=== PATIENT | male | born 1975 | race Two or more races ===

== ENCOUNTER 2025-01-07 16:52 | Emergency (ER) | payer OTHER ==
[2025-01-07 17:00] VITALS: BP 111/78; PULSE 73; RESP 20; TEMP 97.9; BMI 27.7
== END 2025-01-07 18:22 | disposition home or self-care (01) ==
LOC: JER 16:52
DX: F14.90 Cocaine use, unspecified, uncomplicated (principal)
CPT/HCPCS: 99283-25

== ENCOUNTER 2025-01-07 18:56 | Inpatient (IN) | payer OTHER ==
[2025-01-07 19:23] VITALS: BMI 27.8
[2025-01-07] MEDS ORDERED: LOPERAMIDE HCL 2 MG CAPSULE PO PRN (21:00)
[2025-01-07] MEDS ORDERED: IBUPROFEN 400 MG TABLET (FP) PO PRN (21:00)
[2025-01-07] MEDS ORDERED: NICOTINE POLACRILEX 2 MG LOZENGE BC PRN (21:00)
[2025-01-07] MEDS ORDERED: guaiFENesin 600 MG TABLET.ER (FP) PO PRN (21:00)
[2025-01-07] MEDS ORDERED: MAGNESIUM HYDROX 2400MG/30ML ORAL SUSPENSION 30 ML CUP PO PRN (21:00)
[2025-01-07] MEDS ORDERED: BENZONATATE 200 MG CAPSULE PO PRN (21:00)
[2025-01-07] MEDS ORDERED: NALOXONE (NARCAN) HCL 4 MG/0.1 ML SPRAY NS PRN (21:00)
[2025-01-07] MEDS ORDERED: NICOTINE POLACRILEX 2 MG GUM BUC PRN (21:00)
[2025-01-07] MEDS: CARVEDILOL 6.25 MG TABLET (FP) PO SCH (23:09)
[2025-01-07] MEDS: THIAMINE 100 MG TABLET PO SCH (23:09)
[2025-01-07] MEDS: MELATONIN 5 MG TABLETS PO SCH (23:09)
[2025-01-08] MEDS: FUROSEMIDE 20 MG TABLET (FP) PO SCH (10:53)
[2025-01-08] MEDS: amLODIPine BESYLATE 10 MG TABLET (FP) PO SCH (10:53)
[2025-01-08] MEDS: LISINOPRIL 10 MG TABLET PO SCH (10:53)
[2025-01-08] MEDS: PRENATAL VITAMINS W/ FOLIC ACID TABLET (FP) PO SCH (10:53)
[2025-01-08] MEDS: TUBERCULIN PPD 5 TU/0.1ML SYRINGE (IN PATIENT USE ONLY) ID ONE (10:53)
[2025-01-08] MEDS: ASPIRIN COATED 81 MG TABLET.EC PO SCH (10:53)
[2025-01-08 11:22] LABS: HEMATOCRIT 46.4 % (40.1-51.0); HEMOGLOBIN 14.7 g/dL (13.7-17.5); MCHC 31.7 g/dl (32.3-36.5); MEAN CELL VOLUME 86.6 fl (79.0-92.2); MEAN PLT VOLUME 11.3 fl (9.4-12.4); PLATELET COUNT 161 x10^3/uL (163-337)
[2025-01-08 11:29] LABS: POTASSIUM 4.4 mmol/L (3.5-5.1)
[2025-01-08 11:50] LABS: ALBUMIN 2.8 g/dl (3.4-5.0); BLOOD UREA NITROGEN 15.8 mg/dL (7-18); CALCIUM 9.1 mg/dL (8.5-10.1)
[2025-01-08 11:54] LABS: CREATININE 1.4 mg/dL (0.55-1.3)
[2025-01-08 11:55] LABS: BILIRUBIN,TOTAL 0.2 mg/dL (0.2-1); TOT PROT 5.7 g/dl (6.4-8.2)
[2025-01-08] MEDS: FENOFIBRIC ACID 135 MG CAP PO SCH (14:57)
[2025-01-09] MEDS: IBUPROFEN 600 MG TABLET (FP) PO PRN (17:07)
[2025-01-13] MEDS: BACLOFEN 10 MG TABLET (FP) PO SCH (14:13)
[2025-01-13] MEDS: ACETAMINOPHEN 325 MG TABLET (FP) PO PRN (20:23)
[2025-01-13] MEDS: MAG HYDROX/AL HYDROX/SIMETH 30 ML UNIT-DOSE CUP PO PRN (22:05)
[2025-01-14] MEDS: OXYMETAZOLINE 0.05% NASAL SOLUTION 15 ML BOTTLE NS PRN (21:34)
[2025-01-17] MEDS ORDERED: BISACODYL 5 MG TABLET.DR (FP) PO PRN (09:41)
[2025-01-18] MEDS: HYDROCORTISONE 1% TOPICAL OINT 30 GM TUBE TP PRN (21:17)
[2025-01-19] MEDS: LIDOCAINE 5% TOPICAL PATCH TP SCH (15:19)
[2025-01-19] MEDS: LIDOCAINE PATCH REMOVAL MC SCH (21:23)
[2025-01-20] MEDS: POLYETHYLENE GLYCOL (HEALTHYLAX) 3350 17 GM PACKET PO PRN (14:18)
[2025-01-22] MEDS: BENZOCAINE/MENTHOL (CHLORASEPTIC ) LOZENGE MM PRN (10:03)
[2025-01-27 12:49] LABS: ABSOLUTE IMMATURE GRANULOCYTES 0.02 x10^3/uL (0.0-0.031); BASOPHILS # 0.02 x10^3/uL (0.01-0.08); EOSINOPHIL % 3.8 % (0.8-7.0); EOSINOPHILS # 0.22 x10^3/uL (0.04-0.54); HEMATOCRIT 49.6 % (40.1-51.0); MCHC 32.3 g/dl (32.3-36.5); MEAN CELL VOLUME 83.9 fl (79.0-92.2); MEAN PLT VOLUME 11.9 fl (9.4-12.4); MONOCYTE # 0.52 x10^3/uL (0.30-0.82); MONOCYTE % 8.9 % (5.3-12.2); PLATELET COUNT 134 x10^3/uL (163-337); RDW 13.6 % (12.1-15.9)
[2025-01-27 13:02] LABS: POTASSIUM 4.4 mmol/L (3.5-5.1)
[2025-01-27 13:14] LABS: ALBUMIN 3.9 g/dl (3.4-5.0); BLOOD UREA NITROGEN 30.2 mg/dL (7-18); CALCIUM 9.4 mg/dL (8.5-10.1)
[2025-01-27 13:18] LABS: CREATININE 1.4 mg/dL (0.55-1.3)
[2025-01-27 13:20] LABS: TOT PROT 7.2 g/dl (6.4-8.2)
[2025-01-27 13:21] LABS: BILIRUBIN,TOTAL 0.9 mg/dL (0.2-1)
[2025-01-27 15:31] LABS: HCV DIAGNOSTIC IN-HOUSE W/RFLX NON-REACTIVE (NONREACTIVE); HIV INTERPRETATION NEGATIVE (NEGATIVE)
[2025-02-01] MEDS ORDERED: BISMUTH SUBSALICYLATE 262 MG/15 ML BTL ONE (10:44)
[2025-02-01] MEDS: BISMUTH SUBSALICYLATE 262 MG/15 ML BTL PO PRN (10:45)
[2025-02-02] MEDS ORDERED: BISMUTH SUBSALICYLATE 262 MG/15 ML BTL ONE ×2 (10:16→14:52)
[2025-02-02 21:53] VITALS: RESP 16
[2025-02-03 05:28] VITALS: TEMP 97.5
[2025-02-03 09:44] VITALS: BP 126/63; PULSE 61
== END 2025-02-03 10:22 | disposition home or self-care (01) | DRG 772 ==
LOC: YASAS 18:56 → Y3NR 21:57 → Y3W 01-10 10:13
PROVIDERS: ADMIT Psychiatry & Neurology Pain Medicine; ATTEND Psychiatry & Neurology Pain Medicine
PROC: HZ42ZZZ Group Counseling for Substance Abuse Treatment, Cognitive-Behavioral (ICD-10-PCS; principal; 2025-01-07)
DX: F14.20 Cocaine dependence, uncomplicated (principal); F17.210 Nicotine dependence, cigarettes, uncomplicated; E78.5 Hyperlipidemia, unspecified; I10 Essential (primary) hypertension; J45.909 Unspecified asthma, uncomplicated; M54.50 Low back pain, unspecified; G89.29 Other chronic pain
CPT/HCPCS: 36415; 80053; 80305; 80307; 85025; 85027; 86780; 86803; 87389; 93005; 93010; J0475